=== PATIENT | female | born 1965 | race African-American/Black ===

== ENCOUNTER 2018-05-18 10:47 | Emergency (ER) | payer OTHER ==
[2018-05-18 11:01] VITALS: BP 144/79
--- NOTE | 2018-05-18 11:11 | ER Document Report ---
ED Medical Screen (RME) - General Chief Complaint: Leg Pain Stated Complaint: LEG/FINGER PAIN Time Seen by Provider: 05/18/18 11:08 Notes: Chief complaint: Left thigh pain and swelling/carpal tunnel syndrome History of complain:( obtained from----patient) 53 years old female from [place] with a history of DVT on the right leg, also on Eliquis. Currently only on aspirin. Presents today with left eye swelling pain and discomfort. Also having trigger finger in the both left and right thumb. With history of carpal tunnel syndrome. PHYSICAL EXAMINATION: GENERAL: Well-appearing, well-nourished and in no acute distress. HEAD: Atraumatic, normocephalic. EYES: Pupils equal round and reactive to light, extraocular movements intact, conjunctiva are normal. ENT: Nares patent, oropharynx clear without exudates. Moist mucous membranes. NECK: Normal range of motion, supple without lymphadenopathy LUNGS: Breath sounds clear to auscultation bilaterally and equal. No wheezes rales or rhonchi. HEART: Regular rate and rhythm without murmurs ABDOMEN: Soft, nontender, nondistended abdomen. No guarding, no rebound. No masses appreciated. Examination of genitals-deferred Dictation was performed using [employer] voice recognition software - Related Data Allergies/Adverse Reactions: No Known Allergies Allergy (Unverified 05/18/18 10:50) Physical Exam - Vital signs Vitals: Temp Pulse Resp BP Pulse Ox 98.2 F 73 18 144/79 H 99 05/18/18 11:00 05/18/18 11:00 05/18/18 11:00 05/18/18 11:00 05/18/18 11:00 Course - Vital Signs Vital signs: Temp Pulse Resp BP Pulse Ox 98.2 F 73 18 144/79 H 99 05/18/18 11:05/18/18 11:00 05/18/18 11:00 05/18/18 11:00 05/18/18 11:00
[2018-05-18 11:28] LABS: ABSOLUTE EOSINOPHILS # (AUTO) 0.1 10^3/uL (0.0-0.6); ABSOLUTE MONOCYTES (AUTO) 0.2 10^3/uL (0.1-1.4); ABSOLUTE NEUT (AUTO) 2.2 10^3/uL (1.7-8.2); BASOPHILS % (AUTO) 0.6 % (0-2); HEMATOCRIT 40.1 % (36.0-47.0); HEMOGLOBIN 13.6 g/dL (12.0-15.5); LYMPHOCYTES % (AUTO) 44.9 % (13-45); MEAN CORPUSCULAR HEMOGLOBIN 30.5 pg (27.0-33.4); MEAN CORPUSCULAR HGB CONC 33.9 g/dL (32.0-36.0); MEAN CORPUSCULAR VOLUME 90 fl (80-97); MONOCYTES % (AUTO) 4.9 % (3-13); PLATELET COUNT 246 10^3/uL (150-450); RED BLOOD COUNT 4.45 10^6/uL (3.72-5.28); RED CELL DISTRIBUTION WIDTH 14.8 % (11.5-14.0); SEGMENTED NEUTROPHILS % (AUTO) 47.6 % (42-78); TOTAL CELLS COUNTED % (AUTO) 100 %; WHITE BLOOD COUNT 4.5 10^3/uL (4.0-10.5)
[2018-05-18] MEDS ORDERED: IBUPROFEN 600 MG TABLET PO ONE (11:37)
[2018-05-18 11:39] LABS: INTERNATIONAL RATION (INR) 0.92; PROTHROMBIN TIME 12.8 SEC (11.4-15.4)
--- NOTE | 2018-05-18 11:42 | ER Document Report ---
ED General - General Chief Complaint: Leg Pain Stated Complaint: LEG/FINGER PAIN Time Seen by Provider: 05/18/18 11:08 Primary Care Provider: ROSEMARIE MONTES DE OCA DO [ACTIVE STAFF] - Follow up in 1 week - [facility] Notes: Patient is a 53-year-old female that presents to the emergency department for chief complaint of bilateral thumb pain and left leg pain. Patient reports history of DVT in her right leg after breast surgery. She states her left leg began having pain behind her left knee a few days ago. She denies any swelling in the left leg. She states the pain is achy and radiates from the back of her knee up her medial left thigh. She denies injury or trauma. She states she does travel often with her and has been in the car for prolonged periods of time. She denies any chest pain or palpitations. Patient states she has bilateral carpal tunnel syndrome and has recently noticed her thumbs are aching and she is having a hard time straightening them. Past Medical History: History of DVT, carpal tunnel syndrome Past Surgical History: Breast reduction Social History: Denies tobacco and alcohol use Family History: Reviewed and noncontributory for presenting illness Allergies: Reviewed, see documented allergy list. REVIEW OF SYSTEMS: CONSTITUTIONAL : No fever No chills No diaphoresis No recent illness EENT: No vision changes No congestion No sore throat CARDIOVASCULAR: No chest pain No palpitations RESPIRATORY: No shortness of breath No cough No difficulty breathing GASTROINTESTINAL: No abdominal pain No nausea No vomiting No diarrhea GENITOURINARY: No dysuria No hematuria No difficulty urinating MUSCULOSKELETAL: No back pain leg pain Bilateral hand pain SKIN: No rashes No lesions LYMPHATIC: No swollen, enlarged glands. NEUROLOGICAL: No lightheadedness No headache No weakness No paresthesias PSYCHIATRIC: No anxiety No depression PHYSICAL EXAMINATION: Vital signs reviewed, nursing noted reviewed. GENERAL: Well-appearing, well-nourished and in no acute distress. HEAD: Atraumatic, normocephalic. EYES: Eyes appear normal, extraocular movements intact, sclera anicteric, conjunctiva are normal. ENT: nares patent, oropharynx clear without exudates. Moist mucous membranes. NECK: Normal range of motion, supple without lymphadenopathy LUNGS: Breath sounds clear to auscultation bilaterally and equal. No wheezes rales or rhonchi. HEART: Regular rate and rhythm without murmurs ABDOMEN: Soft, nontender, normoactive bowel sounds. No rebound, guarding, or rigidity. No masses appreciated. EXTREMITIES: Bilateral trigger thumbs, positive Tinel's sign bilaterally, tenderness to palpation of posterior left knee, good range of motion, no pitting or edema. NEUROLOGICAL: No focal neurological deficits. Moves all extremities spontaneously Motor and sensory grossly intact on exam. PSYCH: Normal mood, normal affect. SKIN: Warm, Dry, normal turgor, no rashes or lesions noted on exposed skin - Related Data Allergies/Adverse Reactions: Sulfa (Sulfonamide Antibiotics) Allergy (Verified 05/18/18 11:10) Past Medical History - Social History Smoking Status: Never Smoker Frequency of alcohol use: None Drug Abuse: None Family History: Reviewed & Not Pertinent Patient has suicidal ideation: No Patient has homicidal ideation: No - Past Medical History Cardiac Medical History: Reports: Hx Hypertension Endocrine Medical History: Reports: Hx Diabetes Mellitus Type 2 - prediabetic Renal/ Medical History: Denies: Hx Peritoneal Dialysis Past Surgical History: Reports: Hx Breast Surgery - breast reduction, Hx Tubal Ligation Physical Exam - Vital signs Vitals: Temp Pulse Resp BP Pulse Ox 98.2 F 73 18 144/79 H 99 05/18/18 11:00 05/18/18 11:00 05/18/18 11:00 05/18/18 11:00 05/18/18 11:00 Course - Re-evaluation Re-evalutation: 05/18/18 11:41 Vitals reviewed. Nursing notes reviewed. Patient is afebrile and nontoxic in appearance. She has bilateral trigger thumbs. We do not have Velcro thumb spica splints. I did advise patient that she can get these at any pharmacy or order them online. She was given bilateral thumb splints for her trigger finger. Patient given a dose of Motrin for pain and anti-inflammatory properties. Ultrasound will be obtained of her left lower extremity to evaluate for DVT. 05/18/18 13:12 Patient's venous duplex is negative for acute DVT. Her blood work is unremarkable. She will be referred to orthopedic surgery for follow-up of her carpal tunnel and trigger finger. She is discharged in stable condition. Laboratory 05/18/18 05/18/18 05/18/18 11:15 11:15 11:15 WBC 4.5 RBC 4.45 Hgb 13.6 Hct 40.1 MCV 90 MCH 30.5 MCHC 33.9 RDW 14.8 H Plt Count 246 Seg Neutrophils % 47.6 Lymphocytes % 44.9 Monocytes % 4.9 Eosinophils % 2.0 Basophils % 0.6 Absolute Neutrophils 2.2 Absolute Lymphocytes 2.0 Absolute Monocytes 0.2 Absolute Eosinophils 0.1 Absolute Basophils 0.0 PT 12.8 INR 0.92 Sodium 145.3 H Potassium 3.3 L Chloride 101 Carbon Dioxide 32 H Anion Gap 12 BUN 14 Creatinine 0.98 Est GFR ( Amer) > 60 Est GFR (Non-Af Amer) > 60 Glucose 129 H Calcium 9.8 Total Bilirubin 0.4 Direct Bilirubin 0.2 Neonat Total Bilirubin Not Reportable Neonat Direct Bilirubin Not Reportable Neonat Indirect Bili Not Reportable AST 34 ALT 42 Alkaline Phosphatase 58 Total Protein 7.6 Albumin 4.4 - Vital Signs Vital signs: Temp Pulse Resp BP Pulse Ox 98.2 F 73 18 144/79 H 99 05/18/18 11:00 05/18/18 11:00 05/18/18 11:00 05/18/18 11:00 05/18/18 11:00 - Laboratory Result Diagrams: 05/18/18 11:15 05/18/18 11:15 Laboratory results interpreted by me: 05/18/18 05/18/18 11:15 11:15 RDW 14.8 H Sodium 145.3 H Potassium 3.3 L Carbon Dioxide 32 H Glucose 129 H Discharge - Discharge Clinical Impression: Trigger thumb of both hands, Carpal tunnel syndrome, bilateral, Left leg pain Condition: Stable Disposition: HOME, SELF-CARE Instructions: Carpal Tunnel Syndrome ([facility]) Additional Instructions: Please return to the emergency department if you have any worsening, or concern of your symptoms. Please return to the emergency department if you develop chest pain, difficulty breathing, severe abdominal pain, or ongoing vomiting. Please follow-up with your primary care physician in 2-3 days and any other recommended physicians. If prescribed, take all medications as directed. If you have any questions or concerns do not hesitate to return the emergency department for evaluation. Look for a thumb spica Velcro splint at the pharmacy were ordered online. Use the thumb splints provided in the emergency room today as needed for pain in her thumbs. Follow with orthopedic surgery for reevaluation of your trigger finger and carpal tunnel. Referrals: ROSEMARIE MONTES DE OCA DO [ACTIVE STAFF] - Follow up in 1 week [facility] [Provider Group] - Follow up as needed
[2018-05-18 12:23] LABS: ALANINE AMINOTRANSFERASE 42 U/L (9-52); ALBUMIN 4.4 g/dL (3.5-5.0); ALKALINE PHOSPHATASE 58 U/L (38-126); ANION GAP 12 (5-19); ASPARTATE AMINO TRANSFERASE 34 U/L (14-36); BILIRUBIN,DIRECT 0.2 mg/dL (0.0-0.4); BILIRUBIN,TOTAL 0.4 mg/dL (0.2-1.3); BLOOD UREA NITROGEN 14 mg/dL (7-20); CALCIUM 9.8 mg/dL (8.4-10.2); CARBON DIOXIDE 32 mmol/L (22-30); CHLORIDE 101 mmol/L (98-107); GLUCOSE 129 mg/dL (75-110); POTASSIUM 3.3 mmol/L (3.6-5.0); SODIUM 145.3 mmol/L (137-145); TOTAL PROTEIN 7.6 g/dL (6.3-8.2)
--- NOTE | 2018-05-18 13:07 | XCELERA REPORT ---
[address] [place] [facility] [id number] Lower Extremity Venous Evaluation Procedure: Color flow and duplex imaging of the veins of the left lower extremity as well as the right Common Femoral vein. Right Sided Venous Evaluation The right common femoral vein is fully compressible. Spontaneous and phasic flow is present in the right common femoral vein. Left Sided Venous Evaluation Normal vessel filling wall to wall, compression and augmentation as well as Colour flow down to the infrageniculate veins. Interpretation Summary No duplex evidence of DVT or obstruction in the left lower extremity nor in the right Common Femoral vein. Name: VAMSI LOMAX Age: 53 yrs Gender: Female : 1965 Patient Status: Emergency Patient Location: ER Study Date: 05/18/2018 12:51 PM Reason For Study: Left leg DVT/with a history of right leg DVT Ordering Physician: SUSIE BARRIGA Performed By: Dada Danielson : SUSIE BARRIGA > Vargas Donovan
== END 2018-05-18 13:24 | disposition home or self-care (01) ==
LOC: ER 10:47
DX: M65.312 Trigger thumb, left thumb (principal); M65.311 Trigger thumb, right thumb; G56.03 Carpal tunnel syndrome, bilateral upper limbs; M79.605 Pain in left leg; Z86.718 Personal history of other venous thrombosis and embolism; Z88.2 Allergy status to sulfonamides
CPT/HCPCS: 36415; 80053; 85025; 85610; 93971; 99283